=== PATIENT | male | born 1980 | race Hispanic/Latino ===

== ENCOUNTER → 2023-02-28 | Outpatient (CLI) | payer SELFPAY ==
[2023-02-28 12:53] LABS: CHOLESTEROL 164 mg/dL (<200); HDL CHOLESTEROL 47 mg/dL (29-71); LDL DIRECT 99 mg/dL (0-99); TRIGLYCERIDES 182 mg/dL (30-200)
== END | disposition home or self-care (01) ==
LOC: LAB 11:31
PROVIDERS: ATTEND Student in an Organized Health Care Education/Training Program
DX: I10 Essential (primary) hypertension (principal); E78.2 Mixed hyperlipidemia
CPT/HCPCS: 36415; 80061; 84403

== ENCOUNTER → 2024-09-05 | Outpatient (CLI) | payer SELFPAY ==
[~2024-09-05] MED LIST: metoPROLOL tartRATE 1 MG/ML 5ML VIAL IV ONE
== END | disposition home or self-care (01) ==
LOC: RAH 10:00
PROVIDERS: ATTEND Student in an Organized Health Care Education/Training Program
DX: I25.42 Coronary artery dissection (principal); M47.815 Spondylosis without myelopathy or radiculopathy, thoracolumbar region
CPT/HCPCS: 75574; J3490

== ENCOUNTER → 2024-09-10 | Outpatient (CLI) | payer SELFPAY ==
[2024-09-10 12:30] LABS: BILIRUBIN,TOTAL 0.4 mg/dL (0.2-1.0); POTASSIUM 4.6 mmol/L (3.5-5.1); TOTAL PROTEIN, SERUM 8.1 g/dL (6.0-8.3)
== END | disposition home or self-care (01) ==
LOC: LAB 11:22
PROVIDERS: ATTEND Student in an Organized Health Care Education/Training Program
DX: I10 Essential (primary) hypertension (principal); R07.9 Chest pain, unspecified; E78.2 Mixed hyperlipidemia
CPT/HCPCS: 36415; 80053; 80061